=== PATIENT | female | born 1950 | race Caucasian/White ===

== ENCOUNTER 2017-04-03 12:00 | Emergency (ER) | payer MEDICARE, OTHER ==
[~2017-04-03] VITALS: Ht 160 cm; Wt 73.0 kg
[~2017-04-03 12:00] MED LIST: ACET-141 PO; BENA40TA41 PO; DOCU-159 PO; LORA1TAB PO; METF500T PO; NEOMYCIN; OMEP40CA6 PO; POLYMYXIN; SERT50TA6 PO; TRIA1CAP PO; VIT D PO
[2017-04-03 12:05] VITALS: Ht 160 cm; Wt 73.0 kg
[2017-04-03] MEDS ORDERED: KETOROLAC 15 MG INJ IV STA (12:43)
[2017-04-03] MEDS ORDERED: LACTATED RINGER'S 1,000 ML IV ONE (12:43)
[2017-04-03 13:31] LABS: BASOPHILS % 0.3 % (0.0-2.0); EOSINOPHILS # 0.1 10^3/ul (0.0-0.5); EOSINOPHILS % 0.9 % (0.0-7.0); HEMATOCRIT 40.1 % (37.0-47.0); HEMOGLOBIN 12.9 g/dl (12.0-16.0); LYMPHOCYTES # 1.7 10^3/ul (0.8-2.9); LYMPHOCYTES % 14.2 % (15.0-51.0); MEAN CORPUSCULAR HEMOGLOBIN 29.6 pg (29.0-33.0); MEAN CORPUSCULAR HGB CONC 32.2 g/dl (32.0-37.0); MONOCYTE # 0.8 10^3/ul (0.3-0.9); MONOCYTES % 6.7 % (0.0-11.0); NEUTROPHIL # 9.1 10^3/ul (1.6-7.5); NEUTROPHILS % 77.6 % (39.0-77.0); PLATELET COUNT 202 10^3/UL (140-415); RED BLOOD COUNT 4.36 10^6/ul (4.20-5.40); WHITE BLOOD COUNT 11.7 10^3/ul (4.8-10.8)
[2017-04-03 14:09] LABS: ALBUMIN 4.7 g/dl (3.3-4.9); ALBUMIN/GLOBULIN RATIO 0.97; BILIRUBIN,INDIRECT 0.9 mg/dl (0-1.1); BILIRUBIN,TOTAL 0.9 mg/dl (0.2-1.3); CALCIUM 10.7 mg/dl (8.4-10.2); CREATININE 1.59 mg/dl (0.44-1.00); POTASSIUM 3.8 mmol/L (3.5-5.1); TOTAL PROTEIN 9.5 g/dl (6.1-8.1)
[2017-04-03 15:26] LABS: ADD UMIC YES; UR ASCORBIC ACID NEGATIVE (NEGATIVE); UR BACTERIA MODERATE /HPF (NONE SEEN); UR BILIRUBIN (Dip) NEGATIVE (NEGATIVE); UR BLOOD (Dip) 2+ mg/dL (NEGATIVE); UR CLARITY CLOUDY (CLEAR); UR COLOR AMBER (YELLOW); UR GLUCOSE (Dip) NEGATIVE (NEGATIVE); UR KETONES (Dip) NEGATIVE (NEGATIVE); UR LEUKOCYTE ESTERASE (Dip) 1+ Leu/ul (NEGATIVE); UR MUCUS FEW /HPF (NONE SEEN); UR NITRITE (Dip) POSITIVE (NEGATIVE); UR NONSQUAMOUS EPITHELIAL CELL 2 /HPF (NONE SEEN); UR RBC 80 /HPF (0-5); UR SPECIFIC GRAVITY (Dip) 1.013 (1.003-1.030); UR SQUAMOUS EPITHELIAL CELL MODERATE /HPF (FEW); UR TOTAL PROTEIN (Dip) 2+ mg/dl (NEGATIVE); UR UROBILINOGEN (Dip) 2+ mg/dL (NEGATIVE)
[2017-04-03] MEDS ORDERED: CEFTRIAXONE 1 GM/50 ML (PMX) 50 ML IVPB ONE (15:30)
[2017-04-03] MEDS ORDERED: CIPR500T4 PO (15:33)
[2017-04-03] MEDS ORDERED: ACET-141 PO (15:33)
[2017-04-03] MEDS ORDERED: ONDA8TAB14 PO (15:33)
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
[2017-04-03 16:20] VITALS: BP 128/65; PULSE 82; RESP 18; TEMP 98.3
== END 2017-04-03 16:22 | disposition home or self-care (01) ==
LOC: FTE 12:00
DX: N30.00 Acute cystitis without hematuria (principal); I10 Essential (primary) hypertension; Z87.891 Personal history of nicotine dependence
CPT/HCPCS: 36415; 80053; 81001; 83690; 85025; 87086; 96374; 96375; 99284; J0696; J1885; J7120

== ENCOUNTER 2017-06-12 10:00 | Emergency (ER) | END 2017-06-12 13:27 | disposition home or self-care (01) ==

== ENCOUNTER 2018-02-11 10:01 | Emergency (ER) | END 2018-02-11 10:58 | disposition home or self-care (01) ==

== ENCOUNTER 2018-07-30 13:29 | Emergency (ER) | payer MEDICARE, OTHER ==
[~2018-07-30] VITALS: Wt 71.0 kg
[~2018-07-30 13:29] MED LIST changes: -BENA40TA41 PO; +BENA40TA56 PO; +CETI10TA19 PO; +CIPR500T4 PO; +D-ME473S2 PO; +DIPH25CA6 PO; +FLUT9.9S NASAL; +ONDA8TAB14 PO; +PSEU30TA38 PO
[2018-07-30] MEDS ORDERED: SOD CHLORIDE 0.9% 1,000 ML IV STA (13:57)
[2018-07-30] MEDS ORDERED: morphine 4 MG/ML VIAL IV STA (13:57)
[2018-07-30] MEDS ORDERED: ONDANSETRON 4 MG INJ IV STA (13:57)
[2018-07-30] MEDS ORDERED: METR500T PO (15:20)
[2018-07-30] MEDS ORDERED: CIPR500T4 PO (15:20)
[2018-07-30] MEDS ORDERED: ONDA4TAB14 PO (15:20)
[2018-07-30] MEDS ORDERED: IBUP-1542 PO (15:20)
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
[2018-07-30 16:41] VITALS: BP 120/65; PULSE 65; RESP 18
== END 2018-07-30 16:43 | disposition home or self-care (01) ==
LOC: E/R 13:29
DX: K57.32 Diverticulitis of large intestine without perforation or abscess without bleeding (principal); I10 Essential (primary) hypertension; E11.9 Type 2 diabetes mellitus without complications; Z79.84 Long term (current) use of oral hypoglycemic drugs; Z87.891 Personal history of nicotine dependence
CPT/HCPCS: 36415; 74176; 80053; 81001; 83690; 85025; 96374; 96375; 99285; J2270; J2405; J7030